=== PATIENT | female | born 1955 | race Caucasian/White ===

== ENCOUNTER 2022-10-11 09:32 | Outpatient (CLI) | payer OTHER, SELFPAY | END 2022-10-11 09:33 | disposition home or self-care (01) | LOC: NFLDREF 10-13 08:58 | PROVIDERS: PCP Family Medicine; Referring Provider Family Medicine; Visit Provider Obstetrics & Gynecology | DX: N81.9 Female genital prolapse, unspecified (principal); N81.4 Uterovaginal prolapse, unspecified | CPT/HCPCS: 87086 ==

== ENCOUNTER 2022-12-18 15:30 | Outpatient (RCR) | payer OTHER, SELFPAY | END 2023-03-14 10:00 | disposition home or self-care (01) | PROVIDERS: PCP Family Medicine; Visit Provider Obstetrics & Gynecology | DX: N81.4 Uterovaginal prolapse, unspecified (principal); Z51.89 Encounter for other specified aftercare | CPT/HCPCS: 97110; 97140; 97162; 97535 ==

== ENCOUNTER 2023-04-08 08:10 | Outpatient (CLI) | payer OTHER, SELFPAY ==
--- NOTE | 2023-04-08 08:15 | MR_ITS ---
[facility] [address] [facility] [address] Phone:?[phone] Fax:?[phone] Referring Physician Information: Tyson Solano M.D. [address] [facility] [address] Phone:?[phone] Fax:?[phone] Patient:Emily Will D.O.B:?1955 Sex:?Female Phone:?[phone] [facility] MRN:?[id number] Exam Date:?04/08/2023 EXAM: MRI of the LEFT KNEE, without contrast CLINICAL INFORMATION: Female, 68 years old, with left knee pain and popping. INDICATION: Evaluate for meniscal injury. PRIOR SURGERY: None reported. PLAIN FILMS: None available. COMPARISONS: No prior MRIs available. TECHNICAL INFORMATION: Using a 1.5T MR scanner and a localizing surface coil: sagittals: PD, T2FS coronals: PD, STIR axials: PD, PDFS SEDATION: None CONTRAST: None FINDINGS: Knee joint: Effusion: Small left knee effusion. Popliteal cyst: Tzhjl-nyizvo-rhnky, inferiorly leaking Godinez cyst (axial T2FS series 4 images 12-26). Loose bodies: None. Subcutaneous and extra-articular soft tissues: Unremarkable. Ligaments: ACL: Intact ACL anteromedial and posterolateral bundles, without sprain or tear. PCL: Intact PCL, without acute or chronic injury. MCL: Intact MCL superficial and deep layers, without injury. LCL: Intact LCL, without injury. Posterolateral corner: No posterolateral corner soft tissue injury. Popliteus, biceps femoris, iliotibial band, popliteofibular ligament and lateral gastrocnemius are intact. Posteromedial corner: No posteromedial corner soft tissue injury. Semimembranosus, pes anserine tendons and posterior oblique ligament are without injury, tendinopathy or bursitis. Extensor mechanism: Patellar tendon: Intact, without tendinopathy. Quadriceps tendon: Intact, without tendinopathy. Retinacula: Medial and lateral retinacula are intact. Fat pads: Moderate localized edema is present in the superolateral aspect of Hoffa's fat pad (axial T2FS series 4 image 16 and sagittal PDFS series 6 image 21). Unremarkable suprapatellar and prefemoral fat pads. Medial compartment: Medial meniscus: Abnormal intrasubstance signal and irregularity is present throughout the posterior meniscocapsular junction, without discrete tear (sagittal PDFS series 6 images 914). No articular surface or root tear. No extrusion or parameniscal cyst. Medial femoral condyle: No chondromalacia or osteochondral abnormality. Medial tibial plateau: No chondromalacia or osteochondral abnormality. Lateral compartment: Lateral meniscus: No articular surface, meniscosynovial junction or root tear. No displacement, extrusion or parameniscal cyst. Lateral femoral condyle: No chondromalacia or osteochondral abnormality. Lateral tibial plateau: No chondromalacia or osteochondral abnormality. Patellofemoral joint: Patella: Generalized grade II/III chondromalacia of the patella, with mild marginal osteophytosis. Trochlea: Broad-based grade II chondromalacia the medial facet and central sulcus, with mild marginal osteophytosis. Proximal tibiofibular joint: Unremarkable, without evidence of ligament sprain injury, joint effusion or adjacent marrow edema. Bones: No stress/occult fractures or other marrow edema/pathology. IMPRESSION: 1. Posterior meniscocapsular junction sprain of the medial meniscus. No discrete medial or lateral meniscal tear. 2. Mild osteoarthritis of the patellofemoral compartment. 3. Small knee joint effusion with a small, inferiorly leaking Godinez cyst. 4. Patellar tendon lateral femoral condyle friction syndrome. 5. No cruciate or collateral ligament sprain/tear. 6. No osteochondral abnormality of the medial or lateral compartment. BC Electronically signed on 04/08/2023 11:09:00 AM by Chico Castellano M.D.
== END 2023-04-08 08:11 | disposition home or self-care (01) ==
PROVIDERS: PCP Family Medicine; Visit Provider Internal Medicine
DX: M25.562 Pain in left knee (principal); S83.8X2A Sprain of other specified parts of left knee, initial encounter; M25.462 Effusion, left knee; M17.12 Unilateral primary osteoarthritis, left knee; S89.90XA Unspecified injury of unspecified lower leg, initial encounter
CPT/HCPCS: 73721